=== PATIENT | female | born 1950 | race Caucasian/White ===

== ENCOUNTER → 2019-10-09 | Emergency (ER) | payer OTHER ==
[~2019-10-09] VITALS: Ht 152.4 cm; Wt 72.6 kg
[~2019-10-09] MED LIST: ALTACE2.5 MG; CALAN SR120 MG; GLIMEPIRIDE1 MG; METFORMIN HCL500 M3
== END | disposition designated cancer center or children's hospital (05) ==
LOC: ER 14:36
DX: D69.6 Thrombocytopenia, unspecified (principal); R82.71 Bacteriuria; R31.0 Gross hematuria; Z03.818 Encounter for observation for suspected exposure to other biological agents ruled out